=== PATIENT | female | born 1980 | race Caucasian/White ===

== ENCOUNTER 2018-09-04 07:50 | Emergency (ER) | payer OTHER ==
[2018-09-04] MEDS ORDERED: LEVOFLOXACIN 750MG/150ML D5W 750 MG/150 ML BAG IV STA (07:54)
[2018-09-04] MEDS ORDERED: DUONEB 0.5-3 MG/3 ml Neb IH ONE ×2 (07:54→08:05)
[2018-09-04] MEDS ORDERED: TYLENOL 325 MG PO ONE (07:54)
[2018-09-04] MEDS ORDERED: Sodium Chloride 0.9% 1000 ML 1,000 ML IV STA (08:01)
[2018-09-04 08:25] LABS: Lactic Acid 3.2 (0.4-2.0)
[2018-09-04] MEDS ORDERED: TYLENOL 325 MG ONE (08:39)
[2018-09-04] MEDS ORDERED: LEVOFLOXACIN 750MG/150ML D5W 750 MG/150 ML BAG IV ONE (08:39)
[2018-09-04] MEDS ORDERED: Sodium Chloride 0.9% 1000 ML 1,000 ML ONE (08:39)
[2018-09-04 08:41] LABS: BASOPHIL % 0.1 % (0.0-0.4); Basophil (Absolute #) 0.01 (0-0.4); Eosinophil % 1.2 % (0.00-5.0); Eosinophil (Absolute #) 0.11 (0-0.5); Granulocyte Absolute (ANC) 7.76 (1.4-6.9); Granulocytes % 84.6 % (36.0-66.0); Hematocrit 40.6 % (35-47); Hemoglobin 13.8 gm/dl (12.0-16.0); Lymphocyte (Absolute #) 0.95 (1.0-4.6); Lymphocytes % 10.4 % (24.0-44.0); Mean Cell Volume 90.4 fl (78-100); Mean Corpuscular Hemoglobin 30.7 pg (26-32); Mean Platelet Volume 10.1 fl (6-9.5); Monocyte (Absolute #) 0.34 (0.0-1.3); Monocytes % 3.7 % (0.0-12.0); Platelet Count 220 K/mm3 (150-450); Red Blood Count 4.49 M/mm3 (4.1-5.4); Red Cell Distribution Width 13.3 % (11.5-14.0); White Blood Count 9.2 K/mm3 (4.0-10.5)
[2018-09-04 08:45] LABS: ALBUMIN 4.6 g/dL (3.5-5.0); ALKALINE PHOSPHATASE 52 U/L (38-126); ANION GAP 13.8 MEQ/L (5-15); BLOOD UREA NITROGEN 14 mg/dL (7-17); CHLORIDE 106 mmol/L (98-107); Carbon Dioxide 25 mmol/L (22-30); Creatinine 1 0.82 mg/dL (0.52-1.04); Glucose 66 mg/dL (74-106); Potassium 3.3 mmol/L (3.5-5.1); SGOT/AST 27 U/L (14-36); SGPT/ALT 24 U/L (0-35); SODIUM 141 mmol/L (137-145); Total Protein 7.7 g/dL (6.3-8.2)
[2018-09-04 08:58] LABS: Appearance SLIGHTLY CLOUDY (CLEAR); Bacteria RARE /HPF (NEGATIVE); Bilirubin NEGATIVE (NEGATIVE); Blood NEGATIVE Ery/ul (0-5); Epithelial Cells FEW /HPF (FEW); Glucose NEGATIVE (NEGATIVE); Ketones NEGATIVE (NEGATIVE); Leukocyte Esterase NEGATIVE (NEGATIVE); Mucus MANY /HPF (NEGATIVE); Nitrite NEGATIVE (NEGATIVE); Protein,Urine Dip 30 (Negative); RBC 0-2 /HPF (0-2); Specific Gravity 1.031 (1.005-1.025); Urobilinogen NEGATIVE mg/dL (0-1)
[2018-09-04 09:08] LABS: Group A Strep NEGATIVE (NEGATIVE)
[2018-09-04 09:12] LABS: INFLUENZA A NEGATIVE (NEGATIVE); INFLUENZA B NEGATIVE (NEGATIVE); RESPIRATORY SYNCTIAL VIRUS NEGATIVE (Negative)
--- NOTE | 2018-09-04 09:18 | XRAY ---
Indication: Weakness, chills, short of breath. Comparison: November 08, 2014. AP/lateral chest demonstrates new left lung patchy infiltrates without consolidation/effusion. Remaining heart, right lung, and bony thorax normal.
[2018-09-04 09:25] LABS: Barbiturate,Urine NEGATIVE (NEGATIVE); Benzodiazepine,Urine POSITIVE (NEGATIVE); Cocaine,Urine NEGATIVE (NEGATIVE); Methadone,Urine NEGATIVE (NEGATIVE); Opiate,Urine NEGATIVE (NEGATIVE); PCP,Urine NEGATIVE (NEGATIVE); THC,Urine POSITIVE (NEGATIVE)
[2018-09-04 09:41] LABS: Amphetamine,Urine POSITIVE (NEGATIVE)
[2018-09-04 09:42] VITALS: BP 121/66; PULSE 117; O2SAT 98
--- NOTE | 2018-09-04 09:55 | ERPHSYRPT ---
- History of Present Illness Source: patient Exam Limitations: no limitations Patient Subjective Stated Complaint: woke up with kneck pain and shortness of breath Triage Nursing Assessment: pt is alert and orientedx3, able to ambualte by self with standby assistance, she has strong radial pulses bialterally, pupils perrla2, lung sounds clear diminished throughout, patient is shaking profusely, states she feels awful, bowel sounds present x4, pedal pulse psresent, skin is warm dry and intact. Physician History: Pt is a 37 y/o female that presented to the ED with SOB. Pt states, woke up with SOB, diffuse weakness, and malaise. Pt states, has chills but no fever or sweats. Pt denies N/V/D. No abdominal pain. No dysuria, frequency and urgency. She is a smoker, and is using inhalers at baseline. Timing/Duration: today Activities at Onset: none Severity of Dyspnea-Max: none Severity of Dyspnea-Current: mild Modifying Factors: Improves With: nothing Associated Symptoms: cough, weakness, chills Allergies/Adverse Reactions: morphine Allergy (Mild, Verified 03/27/16 15:29) HEADACHE,nausea BARIUM Adverse Reaction (Mild, Uncoded 02/28/15 09:25) CONSTIPATION Home Medications: Albuterol Sulfate Mdi [Proair Hfa MDI] 8.5 gm IH Q4HPRN PRN 04/18/12 [ History] Cyclobenzaprine HCl 10 mg [Cyclobenzaprine 10 MG] 10 mg PO TIDPRN [History] Quetiapine Fumarate [Seroquel] 200 mg PO BID 10/04/14 [History] Trazodone HCl 50 mg [Desyrel 50 mg] 100 mg PO HS 10/04/14 [History] Alprazolam 1 mg [Xanax 1 mg] 1 mg PO Q6H PRN PRN 02/28/15 [History] Ibuprofen [IBUPROFEN 400 MG TABLET] 800 mg PO BID PRN 02/28/15 [History] Promethazine HCl 25 mg [Phenergan 25 mg] 25 mg PO BIDPRN PRN 03/27/16 [ History] Hx Tetanus, Diphtheria Vaccination/Date Given: Yes Hx Influenza Vaccination/Date Given: No Hx Pneumococcal Vaccination/Date Given: No Immunizations Up to Date: Yes - Review of Systems Constitutional: Chills Eyes: No Symptoms Ears, Nose, & Throat: No Symptoms Respiratory: Cough, Dyspnea, Wheezing Cardiac: No Chest Pain, No Edema, No Syncope Abdominal/Gastrointestinal: No Abdominal Pain, No Nausea, No Vomiting, No Diarrhea Genitourinary Symptoms: No Dysuria Musculoskeletal: No Back Pain, No Neck Pain Neurological: No Dizziness, No Focal Weakness, No Sensory Changes - Past Medical History Pertinent Past Medical History: Yes Neurological History: Migraines ENT History: No Pertinent History Cardiac History: High Cholesterol Respiratory History: Bronchitis, COPD, Other Endocrine Medical History: No Pertinent History Musculoskeletal History: No Pertinent History GI Medical History: Esophageal Disorder, GERD, Irritable Bowel, Other History: No Pertinent History Psycho-Social History: Anxiety, Bipolar, Depression Female Reproductive Disorders: No Pertinent History Other Medical History: BOWEL PROBLEMS, stomach empties slow - Past Surgical History Past Surgical History: Yes Neuro Surgical History: No Pertinent History Cardiac: No Pertinent History Respiratory: No Pertinent History Gastrointestinal: Bowel Surgery, Cholecystectomy Genitourinary: No Pertinent History Musculoskeletal: No Pertinent History Female Surgical History: Tubal Ligation Other Surgical History: FEEDING TUBE PLACEMENT ET REMOVAL. ILEOSTOMY PLACED AND REMOVED - Social History Smoking Status: Current every day smoker How long have you smoked: 10-15 year Exposure to second hand smoke: Yes Drug Use: none Patient Lives Alone: No - Female History Hx Now: No - Nursing Vital Signs Nursing Vital Signs: Initial Vital Signs Temperature 97.6 F 09/04/18 07:50 Pulse Rate 103 H 09/04/18 07:50 Respiratory Rate 22 09/04/18 07:50 Blood Pressure 109/65 09/04/18 07:50 O2 Sat by Pulse Oximetry 99 09/04/18 07:50 Pain Scale Pain Intensity 4 - Physical Exam General Appearance: mild distress Eye Exam: PERRL/EOMI Ears, Nose, Throat Exam: hearing grossly normal Neck Exam: normal inspection, supple Respiratory Exam: lungs clear, diminished breath sounds Cardiovascular/Chest Exam: normal heart sounds, regular rate/rhythm Abdominal/Gastrointestinal Exam: soft, No tenderness, No distention, No mass Extremity Exam: non-tender, normal range of motion, normal inspection, no calf tenderness, no pedal edema Neurologic Exam: alert, oriented x 3, cooperative, maintenance team member II-XII nml as tested, sensation nml, No motor deficits SpO2 Interpretation: normal SpO2: 98 O2 Delivery: Room Air - Course Nursing assessment & vital signs reviewed: Yes EKG Interpreted by Me: RATE (96bpm), Sinus Rhythm, NORMAL INTERVALS, NORMAL ST-T - Radiology Exams Chest X-ray Interpretation: Reviewed by me (New left lung patchy infiltrates without consolidation) Ordered Tests: Active Orders 24 hr Category Date Time Status Jigger Operator STAT Care 09/04/18 08:06 Active Clean Catch Urine Specimen STAT Care 09/04/18 08:00 Active EKG-ER Only STAT Care 09/04/18 08:06 Active IV Insertion STAT Care 09/04/18 07:54 Active Oxygen-ED Only Nasal Cannula 2 lpm Care 09/04/18 07:54 Active CHEST 2 VIEWS (PA AND LAT) Stat Exams 09/04/18 07:58 Completed BLOOD CULTURE Stat Lab 09/04/18 08:30 Received CBC W DIFF Stat Lab 09/04/18 08:15 Completed CMP Stat Lab 09/04/18 08:15 Completed CULTURE,URINE Stat Lab 09/04/18 08:53 Received Lactic Acid Stat Lab 09/04/18 08:17 Results UA W/RFX UR CULTURE Stat Lab 09/04/18 08:53 Completed Urine Triage Profile Stat Lab 09/04/18 08:53 Completed Peak Expiratory Flow Rate ONCE RT 09/04/18 08:12 Active Respiratory Therapy Assessment DAILY RT 09/04/18 08:11 Active Medication Summary Discontinued Medications Generic Name Dose Route Start Last Admin Trade Name Shailesh PRN Reason Stop Dose Admin Acetaminophen 975 mg 09/04/18 07:54 09/04/18 08:43 Tylenol 325 Mg PO 09/04/18 07:55 975 mg STAT ONE Administration Acetaminophen Confirm 09/04/18 08:39 Tylenol 325 Mg Administered 09/04/18 08:40 Dose 975 mg .ROUTE .STK-MED ONE Albuterol/Ipratropium 3 ml 09/04/18 07:54 09/04/18 08:19 Duoneb 0.5-3 Mg/3 Ml Neb IH 09/04/18 07:55 3 ml STAT ONE Administration Albuterol/Ipratropium Confirm 09/04/18 08:05 Duoneb 0.5-3 Mg/3 Ml Neb Administered 09/04/18 08:06 Dose 3 ml IH .STK-MED ONE Levofloxacin/Dextrose 750 mg in 150 mls @ 100 mls/hr 09/04/18 07:54 09/04/18 08:43 Levofloxacin 750mg/150ml D5w IV 09/04/18 09:23 100 mls/hr STAT STA 100 mls/hr Administration Sodium Chloride 1,000 mls @ 999 mls/hr 09/04/18 08:01 09/04/18 08:44 Sodium Chloride 0.9% 1000 Ml IV 09/04/18 09:01 999 mls/hr .Q1H1M STA Administration Sodium Chloride Confirm 09/04/18 08:39 Sodium Chloride 0.9% 1000 Ml Administered 09/04/18 08:40 Dose 1,000 mls @ ud .ROUTE .STK-MED ONE Levofloxacin/Dextrose Confirm 09/04/18 08:39 Levofloxacin 750mg/150ml D5w Administered 09/04/18 08:40 Dose 750 mg in 150 mls @ ud IV .STK-MED ONE Lab/Rad Data: Laboratory Result Diagrams 09/04/18 08:15 09/04/18 08:15 Laboratory Results 09/04/18 09/04/18 09/04/18 Range/Units 08:53 08:53 08:17 WBC (4.0-10.5) K/mm3 RBC (4.1-5.4) M/mm3 Hgb (12.0-16.0) gm/dl Hct (35-47) % MCV (78-100) fl MCH (26-32) pg MCHC (32-36) g/dl RDW (11.5-14.0) % Plt Count (150-450) K/mm3 MPV (6-9.5) fl Gran % (36.0-66.0) % Eos # (Auto) (0-0.5) Absolute Lymphs (auto) (1.0-4.6) Absolute Monos (auto) (0.0-1.3) Lymphocytes % (24.0-44.0) % Monocytes % (0.0-12.0) % Eosinophils % (0.00-5.0) % Basophils % (0.0-0.4) % Absolute Granulocytes (1.4-6.9) Basophils # (0-0.4) Sodium (137-145) mmol/L Potassium (3.5-5.1) mmol/L Chloride (98-107) mmol/L Carbon Dioxide (22-30) mmol/L Anion Gap (5-15) MEQ/L BUN (7-17) mg/dL Creatinine (0.52-1.04) mg/dL Estimated GFR ML/MIN Glucose (74-106) mg/dL Lactic Acid 3.2 H (0.4-2.0) Calcium (8.4-10.2) mg/dL Total Bilirubin (0.2-1.3) mg/dL AST (14-36) U/L ALT (0-35) U/L Alkaline Phosphatase (38-126) U/L Serum Total Protein (6.3-8.2) g/dL Albumin (3.5-5.0) g/dL Urine Color BRIANA (YELLOW) Urine Appearance SLIGHTLY CLOUDY (CLEAR) Urine pH 5.0 (5-6) Ur Specific Sund[place] 1.031 (1.005-1.025) Urine Protein 30 (Negative) Urine Ketones NEGATIVE (NEGATIVE) Urine Blood NEGATIVE (0-5) Andriy/ul Urine Nitrite NEGATIVE (NEGATIVE) Urine Bilirubin NEGATIVE (NEGATIVE) Urine Urobilinogen NEGATIVE (0-1) mg/dL Ur Leukocyte Esterase NEGATIVE (NEGATIVE) Urine WBC (Auto) 11-15 (0-5) /HPF Urine RBC (Auto) 0-2 (0-2) /HPF U Epithel Cells (Auto) FEW (FEW) /HPF Urine Bacteria (Auto) RARE (NEGATIVE) /HPF Urine Mucus (Auto) MANY (NEGATIVE) /HPF Urine Culture Reflexed YES (NO) Urine Glucose NEGATIVE (NEGATIVE) mg/dL Urine Opiates Level NEGATIVE (NEGATIVE) Ur Methadone NEGATIVE (NEGATIVE) Urine Barbiturates NEGATIVE (NEGATIVE) Ur Phencyclidine (PCP) NEGATIVE (NEGATIVE) Urine Amphetamine POSITIVE (NEGATIVE) U Benzodiazepine Level POSITIVE (NEGATIVE) Urine Cocaine NEGATIVE (NEGATIVE) Urine Marijuana (THC) POSITIVE (NEGATIVE) Influenza Type A Ag (NEGATIVE) Influenza Type B Ag (NEGATIVE) RSV (PCR) (Negative) Group A Strep Antibody (NEGATIVE) 09/04/18 09/04/18 09/04/18 Range/Units 08:15 08:15 08:15 WBC 9.2 (4.0-10.5) K/mm3 RBC 4.49 (4.1-5.4) M/mm3 Hgb 13.8 (12.0-16.0) gm/dl Hct 40.6 (35-47) % MCV 90.4 (78-100) fl MCH 30.7 (26-32) pg MCHC 34.0 (32-36) g/dl RDW 13.3 (11.5-14.0) % Plt Count 220 (150-450) K/mm3 MPV 10.1 H (6-9.5) fl Gran % 84.6 H (36.0-66.0) % Eos # (Auto) 0.11 (0-0.5) Absolute Lymphs (auto) 0.95 L (1.0-4.6) Absolute Monos (auto) 0.34 (0.0-1.3) Lymphocytes % 10.4 L (24.0-44.0) % Monocytes % 3.7 (0.0-12.0) % Eosinophils % 1.2 (0.00-5.0) % Basophils % 0.1 (0.0-0.4) % Absolute Granulocytes 7.76 H (1.4-6.9) Basophils # 0.01 (0-0.4) Sodium 141 (137-145) mmol/L Potassium 3.3 L (3.5-5.1) mmol/L Chloride 106 (98-107) mmol/L Carbon Dioxide 25 (22-30) mmol/L Anion Gap 13.8 (5-15) MEQ/L BUN 14 (7-17) mg/dL Creatinine 0.82 (0.52-1.04) mg/dL Estimated GFR > 60.0 ML/MIN Glucose 66 L (74-106) mg/dL Lactic Acid (0.4-2.0) Calcium 10.0 (8.4-10.2) mg/dL Total Bilirubin 0.50 (0.2-1.3) mg/dL AST 27 (14-36) U/L ALT 24 (0-35) U/L Alkaline Phosphatase 52 (38-126) U/L Serum Total Protein 7.7 (6.3-8.2) g/dL Albumin 4.6 (3.5-5.0) g/dL Urine Color (YELLOW) Urine Appearance (CLEAR) Urine pH (5-6) Ur Specific [place] (1.005-1.025) Urine Protein (Negative) Urine Ketones (NEGATIVE) Urine Blood (0-5) Andriy/ul Urine Nitrite (NEGATIVE) Urine Bilirubin (NEGATIVE) Urine Urobilinogen (0-1) mg/dL Ur Leukocyte Esterase (NEGATIVE) Urine WBC (Auto) (0-5) /HPF Urine RBC (Auto) (0-2) /HPF U Epithel Cells (Auto) (FEW) /HPF Urine Bacteria (Auto) (NEGATIVE) /HPF Urine Mucus (Auto) (NEGATIVE) /HPF Urine Culture Reflexed (NO) Urine Glucose (NEGATIVE) mg/dL Urine Opiates Level (NEGATIVE) Ur Methadone (NEGATIVE) Urine Barbiturates (NEGATIVE) Ur Phencyclidine (PCP) (NEGATIVE) Urine Amphetamine (NEGATIVE) U Benzodiazepine Level (NEGATIVE) Urine Cocaine (NEGATIVE) Urine Marijuana (THC) (NEGATIVE) Influenza Type A Ag NEGATIVE (NEGATIVE) Influenza Type B Ag NEGATIVE (NEGATIVE) RSV (PCR) NEGATIVE (Negative) Group A Strep Antibody NEGATIVE (NEGATIVE) - Progress Progress: improved Air Movement: good Progress Note: 09/04/18 09:57 Pt was seen and examined. Lab work showed low BG of 66. resp pannel was negative. CBC was normal. Lactate was elevated, and pt was given Levaquin. Blood cultures were taken, prior to ABX. On CXR, infiltrate. Neb was given. UDS showed Amphetamines, BNZ and THC in the urine. Lactic acidosis can be secondary to Amphetamines. Will be able to d/c pt on PO ABX therapy for home. IVF 1 liter bolus was given, and pt is now at her baseline. Blood Culture(s) Obtained: Yes Antibiotics given: Yes Will see patient in: office Counseled pt/family regarding: need for follow-up - Departure Departure Disposition: Home Clinical Impression: CAP (community acquired pneumonia) Condition: Stable Critical Care Time: No Referrals: SHEN BURT [Primary Care Provider] - Additional Instructions: Finish ABX as ordered. F/U with PCP. Prescriptions: Doxycycline Monohydrate 100 mg PO BID #7 capsule
== END 2018-09-04 10:28 | disposition home or self-care (01) ==
LOC: ED 07:50
DX: J18.9 Pneumonia, unspecified organism (principal); Z79.899 Other long term (current) drug therapy
CPT/HCPCS: 36000; 36415; 71046; 80053; 80307; 81001; 83605; 85025; 87040; 87077; 87086; 87186; 87631; 87651; 93005; 93041; 94150; 94640; 96360; 96365; 96366; 96374; 96375; 99284; J1956; A9270-GY